=== PATIENT | female | born 1985 | race Native Hawaiian/Other Pacific Islander ===

== ENCOUNTER 2020-08-01 19:08 | Emergency (ER) | payer OTHER ==
[~2020-08-01] VITALS: Ht 33 cm; Wt 0.5 kg
[2020-08-01 19:47] LABS: PLATELET COUNT 309 K/uL (152-353)
[2020-08-01 19:54] LABS: POTASSIUM 3.4 mmol/L (3.6-5.2)
[2020-08-01 21:00] VITALS: BP 122/78; TEMP 98.7
== END 2020-08-01 21:28 | disposition home or self-care (01) ==
LOC: ED 19:08
PROVIDERS: Hospitalist
DX: N30.80 Other cystitis without hematuria (principal); E87.6 Hypokalemia; F15.10 Other stimulant abuse, uncomplicated
CPT/HCPCS: 36415; 80053; 80307; 80320; 81000; 81025; 85027; 87077; 87086; 87088; 87186; 96360; 96365; 96366; 96375; 99284; J0696; J1885; J2405

== ENCOUNTER 2020-10-03 14:07 | Emergency (ER) | payer OTHER ==
[~2020-10-03] VITALS: Ht 160 cm; Wt 49.9 kg
[2020-10-03 15:15] VITALS: BP 122/87; TEMP 97.3
== END 2020-10-03 15:15 | disposition home or self-care (01) ==
LOC: ED 14:07
DX: S61.112A Laceration without foreign body of left thumb with damage to nail, initial encounter (principal); W26.0XXA Contact with knife, initial encounter; Y92.89 Other specified places as the place of occurrence of the external cause
CPT/HCPCS: 99282

== ENCOUNTER 2021-06-02 17:04 | Emergency (ER) | payer OTHER ==
[~2021-06-02] VITALS: Ht 160 cm; Wt 49.9 kg
[2021-06-02 19:00] VITALS: BP 112/74; TEMP 98.8
== END 2021-06-02 19:00 | disposition home or self-care (01) ==
LOC: ED 17:04
DX: N39.0 Urinary tract infection, site not specified (principal); N12 Tubulo-interstitial nephritis, not specified as acute or chronic
CPT/HCPCS: 80307; 81000; 81025; 87077; 87086; 87088; 87186; 96372; 99283; J2175; J2405

== ENCOUNTER 2022-01-22 15:47 | Emergency (ER) | payer OTHER ==
[~2022-01-22] VITALS: Ht 162.6 cm; Wt 52.2 kg
[2022-01-22 15:50] VITALS: BP 109/73; TEMP 99.1
[2022-01-22 16:14] LABS: PLATELET COUNT 246 K/uL (152-353)
[2022-01-22 16:29] LABS: POTASSIUM 4.2 mmol/L (3.6-5.2)
== END 2022-01-22 18:20 | disposition home or self-care (01) ==
LOC: ED 15:47
PROVIDERS: Hospitalist
DX: N20.0 Calculus of kidney (principal); Z87.442 Personal history of urinary calculi; N73.8 Other specified female pelvic inflammatory diseases; N83.292 Other ovarian cyst, left side
CPT/HCPCS: 36415; 80053; 81000; 81025; 83690; 85027; 87077; 87086; 87088; 87186; 87490; 87590; 96360; 96365; 99284; J0696; J1170; J1885; J2405; Q9963

== ENCOUNTER 2022-01-23 21:20 | Emergency (ER) | payer OTHER ==
[~2022-01-23] VITALS: Ht 162.6 cm; Wt 52.2 kg
[2022-01-23 22:53] LABS: POTASSIUM 4.2 mmol/L (3.6-5.2)
[2022-01-23 23:03] LABS: PLATELET COUNT 201 K/uL (152-353)
[2022-01-24 03:54] VITALS: BP 98/51; TEMP 98.1
== END 2022-01-24 03:54 | disposition short-term general hospital (02) ==
LOC: ED 21:20
PROVIDERS: Emergency Medicine
DX: R19.09 Other intra-abdominal and pelvic swelling, mass and lump (principal); Z11.52 Encounter for screening for COVID-19
CPT/HCPCS: 36415; 80053; 81000; 81025; 84702; 85027; 87040; 87490; 87590; 87635; 96360; 96365; 96366; 96375; 96376; 99285; J0295; J2270; J2405; J3490; U0003